=== PATIENT | male | born 2000 | race Two or more races ===

== ENCOUNTER 2024-09-26 17:28 | Emergency (ER) | payer OTHER ==
[~2024-09-26] VITALS: Ht 188 cm; Wt 120.6 kg
[2024-09-26 19:08] VITALS: BP 130/87; PULSE 97; RESP 19; TEMP 98.4; O2SAT 97
[2024-09-26] MEDS ORDERED: CYCL-614 PO (20:11)
[2024-09-26] MEDS ORDERED: IBUP-1456 PO (20:11)
--- NOTE | 2024-09-26 20:12 | ED.PDOC ---
HPI (NEURO) HPI Comments 24-YEAR-OLD MALE PRESENTS TO ER COMPLAINTS OF FALL INJURY X3 DAYS. PATIENT REPORTS HE SLIPPED AND FELL AND LANDED ON HIS BACK ONTO CEMENT THREE DAYS AGO AND HAS SINCE BEEN EXPERIENCING 5/10 RIGHT-SIDED NECK PAIN AND MID BACK PAIN. STATES THAT HE WAS SEEN AND EVALUATED FOR HIS SYMPTOMS AT [facility] THE DAY OF INJURY BUT STATES THEY NEVER DID IMAGING OF HIS NECK AND MID BACK PROMPTING HIM TO COME BACK TO ER FOR FURTHER EVALUATION. STATES HE DID HIT HIS HEAD UPON FALLING BUT STATES HE WAS WEARING A PROTECTIVE "HARD HAT" DENYING ANY LOC AND DENIES ANY HEADACHE. DENIES NUMBNESS/TINGLING, NAUSEA/VOMITING, SHORTNESS OF BREATH, CHEST PAIN OR ANY FURTHER SYMPTOMS/COMPLAINTS Chief Complaint: Fall Injury Time Seen by MD: 18:13 Primary Care Provider: UNKNOWN Reviewed Notes: Nurses Notes, Medications, Allergies Information Source: Patient Mode of Arrival: Ambulatory Past Medical History PAST MEDICAL HISTORY: Denies Surgical History: Denies all surgeries Family History Family History: Unknown Social History Smoker: Other (NICOTINE VAPE) Alcohol: Occasionally Drugs: Denies Drug Use Lives In: Home Constitutional: denies: chills, diaphoresis, fatigue, fever, malaise, sweats, weakness, others EENTM: denies: blurred vision, double vision, ear bleeding, ear discharge, ear drainage, ear pain, ear ringing, eye pain, eye redness, hearing loss, mouth pain, mouth swelling, nasal discharge, nose bleeding, nose congestion, nose pain, photophobia, tearing, throat pain, throat swelling, voice changes, others Respiratory: denies: cough, hemoptysis, orthopnea, SOB at rest, shortness of breath, SOB with excertion, stridor, wheezing, others Cardiovascular: denies: chest pain, dizzy spells, diaphoresis, Dyspnea on exertion, edema, irregular heart beat, left arm pain, lightheadedness, palpitations, PND, syncope, others Gastrointestinal: denies: abdomen distended, abdominal pain, blood streaked bowels, constipated, diarrhea, dysphagia, difficulty swallowing, hematemesis, melena, nausea, poor appetite, poor fluid intake, rectal bleeding, rectal pain, vomiting, others Genitourinary: denies: burning, dysuria, flank pain, frequency, hematuria, incontinence, penile discharge, penile sore, pain, testicle pain, testicle swelling, urgency, others Neurological: denies: dizziness, fainting, headache, left sided numbness, left sided weakness, numbness, paresthesia, pre-existing deficit, right sided num bness, right sided weakness, seizure, speech problems, tingling, tremors, weakness, others Musculoskeletal: reports: others ( STATED IN HPI) Integumetry: denies: bruises, change in color, change in hair/nails, dryness, laceration, lesions, lumps, rash, wounds, others Allergic/Immunocompromised: denies: Difficulty Healing, Frequent Infections, Hives, Itching, others Hematologic/Lymphatic: denies: anemia, blood clots, easy bleeding, easy bruising, swollen glands, others Endocrine: denies: excessive hunger, excessive sweating, excessive thirst, excessive urination, flushing, intolerance to cold, intolerance to heat, unexplained weight gain, unexplained weight loss, others Psychiatric: denies: anxiety, bipolar disorder, depression, hopeless, panic disorder, schizophrenia, sleepless, suicidal, others Physical Exam General Appearance: No Apparent Distress HEENT: Normal ENT Inspection, PERRL/EOMI, Pharynx Normal, TMs Normal Neck: Full Range of Motion, Other (TTP TO RIGHT CERVICAL PARASPINALS NOTED. NO SKIN CHANGES NOTED) Respiratory: Chest Non-Tender, Lungs Clear, No Accessory Muscle Use, No Respiratory Distress, Normal Breath Sounds Cardiovascular: No Murmur, No Gallop, Regular Rate/Rhythm Breast Exam: Deferred Gastrointestinal: Non Tender, No Pulsatile Mass, Soft Genitalia: Deferred Pelvic: Deferred Rectal: Deferred Extremities: Normal capillary refill, Normal range of motion Musculoskeletal : Extremity Location: Back (TTP TO MID THORACOLUMBAR SPINE NOTED. NO SKIN CHANGES NOTED. STEADY GAIT APPRECIATED) Neurologic: Alert, fur grader II-XII nml as Tested, No Motor Deficits, Normal Affect, Normal Mood, No Sensory Deficits Cerebellar Function: Normal Reflexes: Normal Skin: Dry, Normal Color, Warm Peripheral Pulses: 2+ Radial (R), 2+ Radial (L), 2+ Brachial (R), 2+ Brachial (L) Lymphatic: No Adenopathy Was a procedure done? Was a procedure done?: No Sedation Sedation?: No Differential Diagnosis (SZ) Headache: Other (FRACTURE, NEUROVASCULAR INJURY, CONTUSION) X-Ray, Labs, Meds, VS Vital Signs Date Time Temp Pulse Resp B/P (MAP) Pulse Ox O2 Delivery O2 Flow Rate FiO2 09/26/24 19:08 98.4 97 19 130/87 (101) 98 98.4 09/26/24 19:08 97 19 97 Room Air 09/26/24 18:36 98.4 97 19 130/87 (101) 98 98.4 PATIENT: HAO LEUNGACCT: [id number]: [id number] : 2000 LOC: ER ROOM / BED: / AGE / SEX: 24 / M ADM STATUS: REG ER SERVICE 00 ORDERING PHYSICIAN: GUERLINE NORMAN PROCEDURE(s): CERV2 - CERVICAL SPINE 3V REASON: neck pain ORDER NUMBER(s): [id number], ACCESSION NUMBER(s): [id number] INDICATION: neck pain TECHNIQUE: AP, lateral and odontoid radiographs of the cervical spine COMPARISON: None FINDINGS: No prevertebral soft tissue abnormality is noted. There is normal alignment of the cervical spine. The cervical vertebral bodies are normal in appearance. The intervertebral disc spaces are normal. Facet joints appear unremarkable. IMPRESSION: No abnormality demonstrated. ATED BY: BRENNAN MEJIA MD DICTATED DATE/TIME: 09/26/242026 SIGNED BY: BRENNAN MEJIA MD SIGNED DATE/TIME: 09/26/242026 CC: PATIENT: HAO LEUNG ACCT: [id number] UNIT: [id number] : 2000 LOC: ER ROOM / BED: / AGE / SEX: 24 / M ADM STATUS: REG ER SERVICE 00 ORDERING PHYSICIAN: GUERLINE NORMAN PROCEDURE(s): TL - THORACO LUMBAR REASON: Thoracolumbar pain post fall ORDER NUMBER(s): [id number], ACCESSION NUMBER(s): [id number] INDICATION: Thoracolumbar pain post fall COMPARISON: None TECHNIQUE: 2 views views of the thoraco lumbar spine were obtained. Sacrum not included FINDINGS: The thoracic vertebral alignment is normal. The intervertebral disc spaces are well-maintained. No significant facet arthropathy is noted. No acute fracture, vertebral compression deformity or aggressive osseous lesions. The imaged thorax and abdomen are grossly unremarkable. IMPRESSION: 1. No acute fracture. Vertebral body heights well preserved alignment is normal ATED BY: JHONNY PARKER MD DICTATED DATE/TIME: 09/26/242038 SIGNED BY: JHONNY PARKER MD SIGNED DATE/TIME: 09/26/242038 CC: CERVICAL X-RAY REVIEWED THORACOLUMBAR X-RAY REVIEWED TORADOL 60 MG IM ORDERED PATIENT NEUROVASCULARLY INTACT AND IN NO DISTRESS PRIOR TO DISCHARGE ADVISED ON REST/ NO STRENUOUS ACTIVITY WORKMAN'S COMP PAPERWORK FILLED OUT ADVISED TO FOLLOW UP WITH PCP AND WORKMAN'S COMP PCP IN 1-2 DAYS PATIENT VERBALIZED UNDERSTANDING AND AGREEABLE WITH CURRENT PLAN OF CARE ADVISED TO RETURN TO ER IMMEDIATELY IF SYMPTOMS WORSEN Images Reviewed?: Images reviewed and evaluated by me Time of 1ST Reevaluation: 20:10 Reevaluation 1ST: N/A Patient Education/Counseling: Diagnosis, Treatment, Prognosis, Need For Follow Up Family Education/Counseling: No Family Present Departure 1 Departure Time of Disposition: 20:44 Impression: Primary Impression: Cervical strain Qualified Codes: S16.1XXA - Strain of muscle, fascia and tendon at neck level, initial encounter Additional Impression: Upper back strain Qualified Codes: S29.012A - Strain of muscle and tendon of back wall of thorax, initial encounter Disposition: HOME / SELF CARE / HOMELESS Condition: Stable e-Prescriptions Ibuprofen (Ibuprofen) 800 Mg Tab 1 TAB PO TID PRN, #30 TAB 0 Refills Prov: GUERLINE NORMAN 09/26/24 Cyclobenzaprine HCl (Cyclobenzaprine Hydrochlo) 5 Mg Tab 5 MG PO QHSP, #14 TAB 0 Refills Prov: GUERLINE NORMAN 09/26/24 Critical Care Note Critical Care Time?: No Stability Stability form required: No Heart Score Heart Score: Heart Score Response (Comments) Value History N/A 0 EKG N/A 0 Age N/A 0 Risk Factors N/A 0 Troponin N/A 0 Total 0 GUERLINE NORMAN Sep 26, 2024 20:12
--- NOTE | 2024-09-26 20:29 | DVH ---
INDICATION: neck pain TECHNIQUE: AP, lateral and odontoid radiographs of the cervical spine COMPARISON: None FINDINGS: No prevertebral soft tissue abnormality is noted. There is normal alignment of the cervical spine. Th e cervical vertebral bodies are normal in appearance. The intervertebral disc spaces are normal. Face t joints appear unremarkable. IMPRESSION: No abnormality demonstrated.
--- NOTE | 2024-09-26 20:41 | DVH ---
INDICATION: Thoracolumbar pain post fall COMPARISON: None TECHNIQUE: 2 views views of the thoraco lumbar spine were obtained. Sacrum not included FINDINGS: The thoracic vertebral alignment is normal. The intervertebral disc spaces are well-maintained. No significant facet arthropathy is noted. No acute fracture, vertebral compression deformity or aggressive osseous lesions. The imaged thorax and abdomen are grossly unremarkable. IMPRESSION: 1. No acute fracture. Vertebral body heights well preserved alignment is normal
[2024-09-26] MEDS: KETOROLAC TROMETH 60MG/2ML VIAL IM ONE (21:01)
== END 2024-09-26 21:08 | disposition home or self-care (01) ==
LOC: ER 17:28
DX: S16.1XXA Strain of muscle, fascia and tendon at neck level, initial encounter (principal); S29.012A Strain of muscle and tendon of back wall of thorax, initial encounter; F17.290 Nicotine dependence, other tobacco product, uncomplicated; W01.0XXA Fall on same level from slipping, tripping and stumbling without subsequent striking against object, initial encounter; Y93.89 Activity, other specified; Y92.89 Other specified places as the place of occurrence of the external cause; Y99.8 Other external cause status
CPT/HCPCS: 72040; 72080; 96372; 99284; J1885